=== PATIENT | male | born 1970 | race Caucasian/White ===

== ENCOUNTER 2017-03-24 15:01 | Outpatient (CLI) | payer OTHER | END 2017-03-24 15:02 | disposition home or self-care (01) | LOC: SC 15:01 | PROVIDERS: ATTEND Internal Medicine Pulmonary Disease | DX: G47.33 Obstructive sleep apnea (adult) (pediatric) (principal); G47.8 Other sleep disorders; R06.83 Snoring | CPT/HCPCS: 95810; 99203; 99212 ==

== ENCOUNTER 2017-03-24 15:34 | Outpatient (CLI) | payer OTHER | END 2017-03-24 15:35 | disposition home or self-care (01) | LOC: SC 15:34 | PROVIDERS: ATTEND Internal Medicine Pulmonary Disease | DX: G47.33 Obstructive sleep apnea (adult) (pediatric) (principal) ==

== ENCOUNTER 2023-07-21 07:30 | Outpatient (CLI) | payer OTHER ==
--- NOTE | 2023-07-21 17:18 | XRAY Report ---
PROCEDURE: Chest 2V INDICATIONS: ACUTE COUGH TECHNIQUE: 2 views of the chest were acquired. COMPARISON: None. FINDINGS: Surgical changes and devices: None. Lungs and pleura: No pleural effusions or pneumothorax. Lungs are clear. Mediastinum: Mediastinal contours appear normal. Heart size is normal. Bones and chest wall: No suspicious bony lesions. Overlying soft tissues appear unremarkable. IMPRESSION: No acute cardiopulmonary process. Reviewed by: Krysta Eubanks MD on 07/21/2023 5:17 PM PST Approved by: Krysta Eubanks MD on 07/21/2023 5:17 PM PST Station ID: [id number]
== END 2023-07-21 07:45 | disposition home or self-care (01) ==
LOC: DI.N 07:30
PROVIDERS: ATTEND Physician Assistant Medical
DX: R05.1 Acute cough (principal)

== ENCOUNTER 2023-12-08 20:30 | Emergency (ER) | payer OTHER ==
[2023-12-08 20:41] VITALS: BP 158/68; O2SAT 97
[2023-12-08] MEDS: TETANUS/DIPHTHERIA/PERTUSSIS 0.5 ML SYRINGE IM ONE (20:56)
[2023-12-08] MEDS: AMOX/CLAV 875 MG/125 MG TABLET PO STA (20:56)
--- NOTE | 2023-12-08 20:58 | ED Physician Documentation ---
PD HPI UPPER EXT INJURY - Stated complaint Stated Complaint: LT HAND DOG BITE - Chief complaint Chief Complaint: Laceration - History obtained from History obtained from: Patient - Additonal information Additional information: Breaking up a fight between dogs and bitten on the left thumb. Tetanus is unknown. No other injuries. Happened just [employer]. PD PAST MEDICAL HISTORY - Past Medical History Cardiovascular: None Respiratory: None Endocrine/Autoimmune: None GI: None : None HEENT: None Psych: None Musculoskeletal: Other Derm: Other - Past Surgical History Past Surgical History: Yes General: Appendectomy - Present Medications Home Medications: Ambulatory Orders Medication Instructions Recorded Confirmed Amox/Clav 875/125 [Augmentin] 1 each PO Q12H #10 tablet 12/08/23 Aspirin [[place] Aspirin] 81 mg PO DAILY 12/08/23 12/08/23 DULoxetine [Cymbalta] 30 mg PO DAILY 12/08/23 12/08/23 Ezetimibe/Rosuvastatin Calcium 1 each PO DAILY 12/08/23 12/08/23 [Rosuvastatin-Ezetimibe 40-10Mg] Lisinopril/Hydrochlorothiazide 1 each PO DAILY 12/08/23 12/08/23 [Zestoretic 10-12.5 mg Tablet] Testosterone Cypionate 200 mg SUBQ .EVERY 2 WEEKS 12/08/23 12/08/23 metFORMIN [Glucophage] 2,000 mg PO DAILY 12/08/23 12/08/23 - Allergies Allergies/Adverse Reactions: Allergies Allergy/AdvReac Type Severity Reaction Status Date / Time No Known Drug Allergies Allergy Verified 12/08/23 20:37 - Social History Does the pt smoke?: No Smoking Status: Never smoker Does the pt drink ETOH?: No Does the pt have substance abuse?: No - Immunizations Immunizations are current?: No PD ED PE NORMAL - Vitals Vital signs reviewed: Yes - General General: Alert and oriented X 3, No acute distress - Extremities Extremities: Other (2 puncture wounds on the radial side of the left thumb lateral to the nail. No bony tenderness or limited range of motion. No distal neurovascular compromise.) - Neuro Neuro: Alert and oriented X 3, Normal speech Results - Vitals Vitals: Vital Signs - 24 hr 12/08/23 20:32 Temperature 36 C L Heart Rate 64 Respiratory 16 Rate Blood Pressure 158/68 H O2 Saturation 97 Oxygen O2 Source Room air PD Medical Decision Making - ED course ED course: Wounds were thoroughly irrigated and dressed and he is started Augmentin and Tdap updated. Departure - Departure Disposition: 01 Home, Self Care Clinical Impression: Dog bite Qualifiers: Encounter type: initial encounter Qualified Code(s): W54.0XXA - Bitten by dog, initial encounter Condition: Good Record reviewed to determine appropriate education?: Yes Instructions: ED Wound Care Prescriptions: Amox/Clav 875/125 [Augmentin] 1 each PO Q12H #10 tablet Comments: Note for your records that you received a Tdap shot today. You can leave the current dressing on for overnight to 24 hours, after which remove it and you can wash with soap and water and just keep a Band-Aid on it. If you develop signs of infection such as redness, swelling, drainage, increased pain, or fever, please return for reevaluation.
== END 2023-12-08 21:16 | disposition home or self-care (01) ==
LOC: ED 20:30
DX: S61.052A Open bite of left thumb without damage to nail, initial encounter (principal); W54.0XXA Bitten by dog, initial encounter; Z23 Encounter for immunization
CPT/HCPCS: 90471; 90715; 99283; A9270

== ENCOUNTER 2024-01-31 14:07 | Emergency (ER) | payer OTHER ==
[2024-01-31 14:15] VITALS: BP 178/96; O2SAT 97
--- NOTE | 2024-01-31 14:24 | ED Physician Documentation ---
PD HPI LOWER EXT INJURY - Stated complaint Stated Complaint: RT CALF PX - Chief complaint Chief Complaint: Trauma Ext - History obtained from History obtained from: Patient, Family - Additional information Additional information: He was backing [employer] down a ramp off of his truck and started stumbling and thinks he might of hit the right calf on something and he has moderate pain there especially if he tries to walk which she cannot. No other injuries. PD PAST MEDICAL HISTORY - Past Medical History Past Medical History: No Cardiovascular: None Respiratory: None Endocrine/Autoimmune: None GI: None : None HEENT: None Psych: None Musculoskeletal: Other Derm: Other - Past Surgical History Past Surgical History: Yes General: Appendectomy - Present Medications Home Medications: Ambulatory Orders Medication Instructions Recorded Confirmed Amox/Clav 875/125 [Augmentin] 1 each PO Q12H #10 tablet 12/08/23 Aspirin [[place] Aspirin] 81 mg PO DAILY 12/08/23 12/08/23 DULoxetine [Cymbalta] 30 mg PO DAILY 12/08/23 12/08/23 Ezetimibe/Rosuvastatin Calcium 1 each PO DAILY 12/08/23 12/08/23 [Rosuvastatin-Ezetimibe 40-10Mg] Lisinopril/Hydrochlorothiazide 1 each PO DAILY 12/08/23 12/08/23 [Zestoretic 10-12.5 mg Tablet] Testosterone Cypionate 200 mg SUBQ .EVERY 2 WEEKS 12/08/23 12/08/23 metFORMIN [Glucophage] 2,000 mg PO DAILY 12/08/23 12/08/23 HYDROcod/ACETAM 5/325 [[place] 5/325] 1 - 2 tab PO Q6H PRN #10 tablet 01/31/24 Ibuprofen [Motrin] 800 mg PO Q8H PRN #20 tablet 01/31/24 - Allergies Allergies/Adverse Reactions: Allergies Allergy/AdvReac Type Severity Reaction Status Date / Time No Known Drug Allergies Allergy Verified 01/31/24 14:14 - Social History Does the pt smoke?: No Smoking Status: Never smoker Does the pt drink ETOH?: No Does the pt have substance abuse?: No - Immunizations Immunizations are current?: No PD ED PE NORMAL - Vitals Vital signs reviewed: Yes - General General: Alert and oriented X 3, No acute distress - Extremities Extremities: Other (Focal tenderness of the mid and upper calf posteriorly. There is no tenderness of the knee, the tibia, the fibula. The Achilles itself is nontender but he does have severe pain in the calf with dorsiflexion of the right foot. No sign of compartment syndrome and he is comfortable at rest.) - Neuro Neuro: Alert and oriented X 3, Normal speech Results - Vitals Vitals: Vital Signs - 24 hr 01/31/24 14:12 Temperature 36.5 C Heart Rate 86 Respiratory 16 Rate Blood Pressure 178/96 H O2 Saturation 97 Oxygen O2 Source Room air PD Medical Decision Making - ED course ED course: He presents with a calf injury from either blunt force or strain. There is no evidence of compartment syndrome and he appears comfortable at rest. His Achilles tendon is nontender with intact function and there is no bony tenderness to suggest the need for an x-ray of the area. He was administered crutches and some pain control and advised on return and follow-up precautions. Departure - Departure Disposition: 01 Home, Self Care Clinical Impression: Strain of right calf muscle Condition: Good Record reviewed to determine appropriate education?: Yes Instructions: ED Strain Muscle Ext Prescriptions: Ibuprofen [Motrin] 800 mg PO Q8H PRN #20 tablet PRN Reason: PAIN &/OR FEVER HYDROcod/ACETAM 5/325 [[place] 5/325] 1 - 2 tab PO Q6H PRN #10 tablet PRN Reason: Pain Comments: You have a strain versus contusion of your right calf muscle. I do want you to watch out for something called compartment syndrome, if you were to develop that you would have intolerable pain even at rest with your foot elevated. You should keep it elevated and you can ice it as well. I sent a prescription for some pain medication to the [facility] in [place]. Follow-up with your doctor in a week if not improved. Return for new or worsening symptoms. Forms: PCP List Discharge Date/Time: 01/31/24 14:35
[2024-01-31] MEDS: HYDROcod/ACETAM 5/325 MG TABLET PO STA (14:29)
[2024-01-31] MEDS: IBUPROFEN 800 MG TABLET PO STA (14:30)
== END 2024-01-31 14:35 | disposition home or self-care (01) ==
LOC: ED 14:07
DX: S86.111A Strain of other muscle(s) and tendon(s) of posterior muscle group at lower leg level, right leg, initial encounter (principal); X58.XXXA Exposure to other specified factors, initial encounter
CPT/HCPCS: 99283; A9270

== ENCOUNTER 2024-02-02 19:16 | Emergency (ER) | payer OTHER ==
[2024-02-02 19:29] VITALS: BP 162/82; O2SAT 96
--- NOTE | 2024-02-02 20:08 | XRAY Report ---
PROCEDURE: Foot 3+V RT INDICATIONS: foot/ankle pain TECHNIQUE: 3 views of the foot were acquired. COMPARISON: None. FINDINGS: Bones: No acute displaced fracture or dislocation. Mild first MTP and midfoot degenerative changes. P artially seen ankle degenerative changes also present. Soft tissues: No suspicious calcifications. Calcaneal enthesopathy. IMPRESSION: Mild degenerative changes without acute radiographic abnormality. If there is high concern for furthe r derangement, consider MRI evaluation. Reviewed by: Rey Martinez MD on 02/02/2024 8:07 PM PDT Approved by: Rey Martinez MD on 02/02/2024 8:07 PM PDT Station ID: [id number]
--- NOTE | 2024-02-02 20:11 | XRAY Report ---
PROCEDURE: Tib/Fib RT INDICATIONS: foot/ankle pain TECHNIQUE: 2 views of the tibia and fibula were acquired. COMPARISON: None. FINDINGS: Bones: Partially seen ankle degenerative changes and calcaneal enthesopathy. There is slight deformi ty and periosteal thickening of the fibular shaft. No acute displaced fracture line is evident. Soft tissues: No suspicious calcifications. IMPRESSION: Slight deformity, heterogeneity, and periosteal thickening throughout the fibular shaft, possibly rel ated to prior injury or underlying bone lesion such as fibrous dysplasia. Follow-up radiography or cross-sectional imaging is reasonable, especially if there is any primary ma lignancy history or clinical symptoms. Reviewed by: Rey Martinez MD on 02/02/2024 8:10 PM PDT Approved by: Rey Martinez MD on 02/02/2024 8:10 PM PDT Station ID: [id number]
--- NOTE | 2024-02-02 20:46 | ED Physician Documentation ---
PD HPI LOWER EXT INJURY - Stated complaint Stated Complaint: RT FOOT PX - Chief complaint Chief Complaint: Ext Problem - Additional information Additional information: 53-year-old male who is here recently for right calf pain/injury. Patient says that he was moving a heavy load and as he took a step backwards he felt a sharp ripping pain to his right calf there is no trauma or injury no fall nothing hit his right calf. He was discharged home was told to continue [id number] medication such as Tylenol ibuprofen and was given narcotics to help manage the pain but says that the pain has not improved and the swelling has not gone down. He has been icing it periodically throughout the day he does say that the narcotic medication that he was prescribed does take the edge off but he is worried because there is heat to the right calf. No recent illnesses no fevers or chills no nausea or vomiting pain with ambulation PD PAST MEDICAL HISTORY - Past Medical History Cardiovascular: None Respiratory: None Endocrine/Autoimmune: None GI: None : None HEENT: None Psych: None Musculoskeletal: Other Derm: Other - Past Surgical History Past Surgical History: Yes General: Appendectomy Ortho: Other - Present Medications Home Medications: Ambulatory Orders Medication Instructions Recorded Confirmed Aspirin [[place] Aspirin] 81 mg PO DAILY 12/08/23 02/02/24 Ezetimibe/Rosuvastatin Calcium 40 mg PO DAILY 12/08/23 02/02/24 [Rosuvastatin-Ezetimibe 40-10Mg] Lisinopril/Hydrochlorothiazide 12.5 each PO DAILY 12/08/23 02/02/24 [Zestoretic 10-12.5 mg Tablet] Testosterone Cypionate 200 mg SUBQ .EVERY 2 WEEKS 12/08/23 02/02/24 metFORMIN [Glucophage] 2,000 mg PO DAILY 12/08/23 02/02/24 HYDROcod/ACETAM 5/325 [[place] 5/325] 1 - 2 tab PO Q6H PRN #10 tablet 01/31/24 02/02/24 Ibuprofen [Motrin] 800 mg PO Q8H PRN #20 tablet 01/31/24 02/02/24 - Allergies Allergies/Adverse Reactions: Allergies Allergy/AdvReac Type Severity Reaction Status Date / Time No Known Drug Allergies Allergy Verified 02/02/24 19:26 - Social History Does the pt smoke?: No Smoking Status: Never smoker Does the pt drink ETOH?: No Does the pt have substance abuse?: No - Immunizations Immunizations are current?: No PD ED PE NORMAL - Vitals Vital signs reviewed: Yes - General General: Alert and oriented X 3, No acute distress, Well developed/nourished - Derm Derm: Normal color, Warm and dry, No rash, Other (Right calf warm to the touch) - Extremities Extremities: Other (Right lower extremity: Right calf is significantly more swollen than left calf compartments are soft CMS intact he does have a dorsalis pedis pulse Doppler utilized. Tenderness with flexion to the calf of the ankle. Tenderness with any sort of palpation to the right calf. No erythema no lesions o) Results - Vitals Vitals: Vital Signs - 24 hr 02/02/24 19:17 Temperature 36.7 C Heart Rate 83 Respiratory 15 Rate Blood Pressure 162/82 H O2 Saturation 96 Oxygen O2 Source Room air - Rads (name of study) Right lower leg x-rays Relevant Findings:: Final report received, EMP independent interpretation of test, Other (No acute findings. Slightly deformed heterogeneity and periosteal thickening throughout the fibular shaft possibly related to prior injury) Right foot x-ray Relevant Findings:: Final report received, EMP independent interpretation of test, Other (Mild degenerative changes without acute radiographic abnormality.) PD Medical Decision Making - ED course ED course: 53-year-old male presents emergency room for right calf pain. I considered DVT as a diagnoses but patient does have strong dorsalis pedis pulses and given that he had a recent injury to that right calf I have a low suspicion that this is because of his pain and swelling. X-rays are complete of the foot no acute fractures or abnormalities. I did consider fracture of the right hip/fib but x- rays do not reveal any acute findings there is a slight deformity heterogeneity and periosteal thickening throughout the fibular shaft which is possibly due to previous injury or underlying bone lesion although patient has had no recent weight loss Or other signs of neoplasm. Patient likely had a gastrocnemius tear with hematoma. Compartments are soft making me less concerned or worried about compartment syndrome he also is not experiencing pain at a proportion is allowing me to palpate his right calf. He was offered a walking boot but kindly declined. Patient was told to follow-up with primary care provider for more outpatient specialty imaging as needed an Pillo wrap was applied to patient's right calf to help with compression and says that he already is feeling significantly better after this compression. He was also given a Toradol shot, 1000 mg of Tylenol, [place] here in the emergency department has an appoint with his primary care provider first thing tomorrow morning for further evaluation. Return precautions given all questions answered patient safe for discharge. Departure - Departure Disposition: 01 Home, Self Care Clinical Impression: Gastrocnemius tear Qualifiers: Encounter type: subsequent encounter Laterality: right Qualified Code(s): S86.111D - Strain of other muscle(s) and tendon(s) of posterior muscle group at lower leg level, right leg, subsequent encounter Instructions: Gastrocnemius Muscle Tear, Gastrocnemius Muscle Tear Exercise Comments: Thank you for trusting us with your care. You have most likely torn your calf muscle. We placed compression Pillo wrap on it you can also put a VERNELL hose on to help with compression. We have given you a Toradol shot here in the emergency department as well as some [place] to help with your pain and discomfort continue to use your crutches as needed for ambulation. You can take an Aleve or ibuprofen in 6 hours from when you get your Toradol injection. Please follow with your primary care provider tomorrow to discuss possible physical therapy and other possible advanced imaging. Forms: PCP List Discharge Date/Time: 02/02/24 21:04
[2024-02-02] MEDS: HYDROcod/ACETAM 5/325 MG TABLET PO STA (20:53)
[2024-02-02] MEDS: KETOROLAC 30 MG/ML VIAL IM STA (20:54)
== END 2024-02-02 21:04 | disposition home or self-care (01) ==
LOC: ED 19:16
DX: S86.111A Strain of other muscle(s) and tendon(s) of posterior muscle group at lower leg level, right leg, initial encounter (principal); X50.0XXA Overexertion from strenuous movement or load, initial encounter
CPT/HCPCS: 73590; 73630; 96372; 99283; 99284; A9270